=== PATIENT | female | born 1960 | race Caucasian/White ===

== ENCOUNTER 2018-11-28 15:48 | Emergency (ER) | payer OTHER ==
[~2018-11-28] VITALS: Ht 160 cm; Wt 53.2 kg
[2018-11-28 15:57] VITALS: Ht 160 cm; Wt 53.2 kg
[2018-11-28] MEDS ORDERED: KLONOPIN0.5 MG (15:59)
[2018-11-28] MEDS ORDERED: NIFEDIPINE ER90 MG PO (16:01)
[2018-11-28] MEDS ORDERED: CATAPRES0.1 MG (16:01)
[2018-11-28 16:32] LABS: BASOPHILS 0.3 % (0-2); EOSINOPHILS 1.4 % (0-7); HEMATOCRIT 35.9 % (36.0-48.0); HEMOGLOBIN 12.3 g/dL (12-16); IMMATURE GRANULOCYTES 0.1 % (0-5); LYMPHOCYTES 18.1 % (15-50); MCH 31.3 pg (26.0-34.0); MCHC 34.3 g/dL (31.0-37.0); MCV 91.3 fL (80.0-100.0); MEAN PLATELET VOLUME 10.2 fL (7.4-10.4); MONOCYTES 7.7 % (2-11); NEUTROPHILS 72.4 % (40-80); PLATELET COUNT 229 10x3/uL (130-400); RBC 3.93 10x6/uL (4.00-5.40); RDW 12.8 % (11.5-14.5); WBC 8.6 10x3/uL (4.8-10.8)
[2018-11-28 16:40] LABS: APTT 26.6 SECONDS (22.8-39.4); INR 1.09 (0.85-1.17); PROTIME 13.6 SECONDS (11.6-15.0)
[2018-11-28 16:48] LABS: ALBUMIN 3.8 g/dL (3.4-5.0); ALKALINE PHOSPHATASE 107 U/L (46-116); ALT (SGPT) 24 U/L (10-68); CALC OSMOLALITY 280 mosm/kg (275-300); CARBON DIOXIDE 23.9 mmol/L (21.0-32.0); CHLORIDE - SERUM 102 mmol/L (98-107); CREATININE - SERUM 1.9 mg/dL (0.6-1.3); GLUCOSE 111 mg/dL (74-106); POTASSIUM - SERUM 3.8 mmol/L (3.5-5.1); PROTEIN - SERUM 7.6 g/dL (6.4-8.2); SODIUM 138 mmol/L (136-145); UREA NITROGEN 25 mg/dL (7-18); eGFR NON AFRICAN AMERICAN 29 mL/min (90-120)
[2018-11-28 17:02] LABS: CKMB 0.3 U/L (0.0-3.6); CREATINE KINASE 52 UL (21-215); MAGNESIUM - SERUM 2.1 mg/dL (1.8-2.4)
[2018-11-28 17:03] LABS: TROPONIN-I < 0.017 ng/mL (0.000-0.060)
[2018-11-28] MEDS ORDERED: LOPRESSOR25 MG PO (17:57)
[2018-11-28 19:34] VITALS: BP 151/89
== END 2018-11-28 19:35 | disposition home or self-care (01) ==
LOC: D.ER 15:48
PROVIDERS: Family Medicine
DX: R00.2 Palpitations (principal); I10 Essential (primary) hypertension; N28.9 Disorder of kidney and ureter, unspecified

== ENCOUNTER 2019-09-06 09:00 | Outpatient (CLI) | payer OTHER ==
[2018-11-28 15:57] VITALS: BMI 20.7
[~2019-09-06 09:00] MED LIST: CATAPRES0.1 MG; KLONOPIN0.5 MG; LOPRESSOR25 MG PO; NIFEDIPINE ER90 MG PO
== END 2019-09-06 10:00 | disposition home or self-care (01) ==
LOC: D.MAMMO 09:00
PROVIDERS: ATTEND Family Medicine
DX: Z12.31 Encounter for screening mammogram for malignant neoplasm of breast (principal)